=== PATIENT | female | born 1970 | race Two or more races ===

== ENCOUNTER 2018-05-22 10:52 | Emergency (ER) | payer MEDICAID ==
[~2018-05-22] VITALS: Ht 157.5 cm; Wt 66.0 kg
[~2018-05-22 10:52] MED LIST: LOP25T PO
[2018-05-22 11:50] LABS: BASOPHILS % (AUTO) 0.5 % (0-1); EOSINOPHILS # (AUTO) 0.2 X10'3 (0-0.9); EOSINOPHILS % (AUTO) 2.4 % (0-6); HEMATOCRIT 33.2 % (35.0-45.0); HEMOGLOBIN 11.3 g/dl (12.0-16.0); LYMPHOCYTES % (AUTO) 15.6 % (21-51); MEAN CORPUSCULAR HEMOGLOBIN 31.5 PG (27.0-31.0); MEAN CORPUSCULAR VOLUME 92.8 FL (78-98); MEAN PLATELET VOLUME 8.6 FL (7.4-10.4); MONOCYTES # (AUTO) 0.4 X10'3 (0-0.9); MONOCYTES % (AUTO) 5.9 % (2-12); NEUTROPHILS # (AUTO) 4.7 X10'3 (1.8-7.7); NEUTROPHILS % (AUTO) 75.6 % (42-75); PLATELET COUNT 228 X10'3 (140-440); RED BLOOD COUNT 3.58 X10'6 (4.20-5.60); RED CELL DISTRIBUTION WIDTH 13.9 % (11.5-14.5); WHITE BLOOD COUNT 6.3 X10'3 (4.5-11.0)
[2018-05-22 12:09] LABS: URINE HCG NEGATIVE (NEG)
--- NOTE | 2018-05-22 12:10 | NUR ---
pelvic exam tray set up. patient don gown and given warm blanket.
[2018-05-22] MEDS ORDERED: ETON1VAG VG (12:18)
[2018-05-22 12:25] VITALS: BP 113/84
== END 2018-05-22 12:27 | disposition home or self-care (01) ==
LOC: ER 10:53
DX: N93.9 Abnormal uterine and vaginal bleeding, unspecified (principal); I10 Essential (primary) hypertension; F17.210 Nicotine dependence, cigarettes, uncomplicated; Z98.51 Tubal ligation status; Z88.1 Allergy status to other antibiotic agents; Z88.2 Allergy status to sulfonamides
CPT/HCPCS: 36415; 81025; 85025; 99283

== ENCOUNTER 2018-09-18 16:12 | Emergency (ER) | payer MEDICAID ==
[~2018-09-18] VITALS: Ht 157.5 cm; Wt 75.0 kg
[~2018-09-18 16:12] MED LIST changes: +ETON1VAG VG
[2018-09-18 16:31] VITALS: BP 157/91
[2018-09-18] MEDS ORDERED: METH-360 PO (17:04)
[2018-09-18] MEDS ORDERED: orphenadrine citrate 60mg/2ml inj. IM ONE (17:05)
[2018-09-18] MEDS ORDERED: ketorolac tromethamine 15mg/ml inj. IM ONE (17:05)
== END 2018-09-18 17:29 | disposition short-term general hospital (02) ==
LOC: ER 16:13
DX: M54.41 Lumbago with sciatica, right side (principal); I10 Essential (primary) hypertension; F32.9 Major depressive disorder, single episode, unspecified; Z87.442 Personal history of urinary calculi; Z98.51 Tubal ligation status; Z98.890 Other specified postprocedural states; Z88.2 Allergy status to sulfonamides; Z88.1 Allergy status to other antibiotic agents; Z79.899 Other long term (current) drug therapy
CPT/HCPCS: 96372; 99285; J1885; J2360

== ENCOUNTER 2023-12-14 12:37 | Emergency (ER) | payer MEDICAID ==
[~2023-12-14] VITALS: Ht 162.6 cm; Wt 70.5 kg
[~2023-12-14 12:37] MED LIST changes: +BACL10TA PO; -ETON1VAG VG; +GABA-530 PO
[2023-12-14 12:44] VITALS: BP 188/105; PULSE 105; RESP 16; TEMP 98.5; O2SAT 98
[2023-12-14] MEDS ORDERED: LORA-269 PO (15:05)
[2023-12-14] MEDS: LORazepam 0.5 MG tablet PO STA (15:20)
== END 2023-12-14 15:25 | disposition home or self-care (01) ==
LOC: ER 12:38
DX: F41.0 Panic disorder [episodic paroxysmal anxiety] (principal); I10 Essential (primary) hypertension; F32.A Depression, unspecified; Z98.51 Tubal ligation status; Z98.890 Other specified postprocedural states; Z88.2 Allergy status to sulfonamides; Z79.899 Other long term (current) drug therapy
CPT/HCPCS: 99283